=== PATIENT | female | born 1960 | race Hispanic/Latino ===

== ENCOUNTER 2016-06-05 17:31 | Emergency (ER) | payer MEDICARE, MEDICAID ==
[~2016-06-05] VITALS: Ht 162.6 cm; Wt 100.0 kg
[~2016-06-05 17:31] MED LIST: ALBU8.5H4 IH; CITA40TA13 PO; CYCL5TAB PO; DILT120C86 PO; DOXY150C PO; Docusate Sodium PO; IBUP800T28 PO; LIDO700A6 TP; METR500T PO; ONDA4VIA27 PO; OXYC5TAB72 PO
[2016-06-05 17:37] VITALS: BP 130/93; PULSE 79; RESP 18; O2SAT 98
[2016-06-05 18:08] LABS: BASOPHILS % (AUTO) 0.1 % (0-3); EOSINOPHILS % (AUTO) 2.4 % (0-5); MONOCYTES % (AUTO) 7.9 % (4-12); Mean Corpuscular Hemoglobin 29.3 pg (27.0-35.0); Mean Corpuscular Volume 86.2 fL (81-100); NEUTROPHILS % (AUTO) 61.2 % (40-74); Platelet Count 253 bil/L (150-400)
[2016-06-05 18:11] VITALS: BP 126/79; PULSE 75; RESP 17; O2SAT 98
[2016-06-05 18:42] LABS: TROPONIN T < 0.010 ug/L (0.0-0.011)
[2016-06-05 18:48] LABS: Magnesium 2.1 mg/dL (1.6-2.6)
[2016-06-05 18:56] VITALS: BP 129/68; PULSE 72; RESP 20; O2SAT 95
--- NOTE | 2016-06-05 19:02 | DRSVH ---
PROCEDURE: X-RAY CHEST ONE VIEW, PORTABLE ([id number]) INDICATIONS: Chest pain TECHNIQUE: One view of the chest was acquired. COMPARISON: [facility], , CHEST 1VW (PORTABLE), 08/25/2014, 16:26. FINDINGS: Surgical changes and devices: patient monitor leads are seen over the chest. Previous anterior lower cervical spine surgery is noted by plate and screws. Lungs and pleura: No pleural effusions or pneumothorax. Lungs are clear. Mediastinum: Mediastinal contours appear normal. Heart size is normal. Bones and chest wall: No suspicious bony lesions. Overlying soft tissues appear unremarkable. IMPRESSION: Acute disease is not seen in the upright portable chest. Dictated by: Kimo Gauthier M.D. on 06/05/2016 at 19:00 Approved by: Kimo Gauthier M.D. on 06/05/2016 at 19:01
--- NOTE | 2016-06-05 19:25 | ED.REPORT ---
HPI-Chest Pain 40 and Over Date of Service Jun 05, 2016 ED Provider: Yfn Rodríguez MD A 55 year old female with a history of prediabetes, hypertension, depression, asthma, heartburn, and fibroid uterus is referred to the ED from Urgent Care due to chest pain, described as pressure. The pressure began at 13:00 today and lasted until 17:00. This was accompanied by arm numbness, nausea, vomiting x3, and diaphoresis. The pt is not experiencing any pain in the ED. She denies a history of high cholesterol or any personal or family history of heart disease. Per pt's daughter, the pt experienced an unexplained episode of syncope two years ago that she believes may be related to her current symptoms. Nursing Notes Stated Complaint: CHEST PRESSURE Chief Complaint: Chest Pain Nursing Notes Reviewed: Yes Allergies: Coded Allergies: No Known Allergies (Verified Allergy, Unknown, 01/17/15) Scheduled Citalopram (Citalopram) 40 Mg Tablet 40 MG PO DAILY Diltiazem ER (Diltiazem ER) 120 Mg Capsule.er 120 MG PO DAILY Doxycycline Monohydrate (Adoxa) 150 Mg Capsule 150 MG PO DAILY Famotidine (Pepcid) 20 Mg Tablet 20 MG PO BID Lidocaine (Lidoderm) 700 Mg Adh..patch 1 PATCH TP HS Metronidazole (Flagyl) 500 Mg Tablet 500 MG PO BID Scheduled PRN ([Docusate Sodium]) 100 MG CAPSULE 200 MG PO BID PRN PRN For Constipation Albuterol HFA (Albuterol HFA) 8.5 Gm Hfa.aer.ad 2 PUFF IH Q4 PRN PRN For Shortness of Breath Cyclobenzaprine (Cyclobenzaprine) 5 Mg Tablet 5 MG PO TID PRN PRN Spasm Ibuprofen (Ibuprofen) 800 Mg Tablet 800 MG PO TID PRN PRN For Pain Ondansetron PF (Ondansetron PF) 2 Mg/Ml Ml 4-8 MG PO Q4H PRN PRN For Nausea oxyCODONE (oxyCODONE) 5 Mg Tablet 5-10 MG PO Q4 PRN PRN For Moderate Pain General Time Seen by MD: 17:50 Chief Complaint Chest pain Hx Obtained From: Patient Arrived By: Walk-in Sudden in Onset?: Yes Onset Occurred: 5 - 8 hours ago Symptom Duration: 1 - 4 hours Recent Healthcare: No recent hospitalization, Recent doctor visit Similar Sx Previous: No Past Medical History Past Medical History prediabetes hypertension depression asthma heartburn fibroid uterus kidney stones constipation heartburn bronchitis Past Surgical History fused cervical disks lap hysterectomy 12/2014 Reports: Appendectomy Smoking History Never Smoker Social History Alcohol Use: Denies alcohol use Other Social History: Good social support Ambulatory Status Independent Review of Systems Constitutional: Denies: Fever Respiratory: Denies: Non-productive cough, Shortness of breath Cardiovascular: Reports: Chest pain ("pressure") GI: Reports: Nausea, Vomiting, Denies: Abdominal pain Musculoskeletal: Denies: Back pain, Neck pain Skin: Reports Diaphoresis, Denies Rash Neurologic: Reports: Numbness Complete sys rev & neg: except as marked. Physical Exam Initial Vital Signs Vital Signs (First) Date Time Temp Pulse Resp B/P Pulse Ox O2 Delivery O2 Flow Rate FiO2 06/05/16 17:37 36.4 79 18 130/93 98 Room Air Initial VS: Reviewed General/Constitutional: Awake, Alert Respiratory / Chest: Atraumatic, Breath sounds NL, Breath sounds = bilat, No respiratory distress Cardiovascular: Heart rate NL, Regular rhythm, Heart sounds NL Abdomen: Atraumatic, Soft, Non-tender, BS normoactive Neck: Atraumatic, Supple, Full range of motion Back: Atraumatic, Full range of motion Lower Extremity / Pelvis / MS: Atraumatic, Full range of motion Skin: Atraumatic, Color NL, No rash, Warm, Dry Neurologic: Oriented X3, Speech NL, No motor deficits, No sensory deficits Psychiatric: Affect NL, Mood NL Head / Eyes: Atraumatic, Normocephalic, PERRL, EOMI ENT: Atraumatic, Airway patent, Mucous membranes moist Upper Extremity / MS: Atraumatic, Full range of motion Interpretation & Diagnostics Lab Results Interpretation Result Diagram: 06/05/16 1802 06/05/16 1802 Test 06/05/16 18:02 06/05/16 18:05 06/05/16 19:51 White Blood Count 6.7th/mm3 (3.8-10.1) Red Blood Count 4.57mil/mm3 (3.90-5.20) Hemoglobin 13.4g/dL (12.0-15.6) Hematocrit 39.4% (35.0-46.0) Mean Corpuscular Volume 86.2fL (81-100) Mean Corpuscular Hemoglobin 29.3pg (27.0-35.0) Mean Corpuscular Hemoglobin Concent 34.0% (32.0-37.0) Red Cell Distribution Width 13.1% (12.3-15.4) Platelet Count 253bil/L (150-400) Neutrophils (%) (Auto) 61.2% (40-74) Lymphocytes (%) (Auto) 28.3% (14-46) Monocytes (%) (Auto) 7.9% (4-12) Eosinophils (%) (Auto) 2.4% (0-5) Basophils (%) (Auto) 0.1% (0-3) Sodium Level 140mEq/L (134-144) Potassium Level 4.1mEq/L (3.5-5.2) Chloride Level 101mEq/L (97-108) Carbon Dioxide Level 26mmol/L (18-29) Blood Urea Nitrogen 16mg/dL (6-24) Creatinine 0.65mg/dL (0.57-1.00) Estimat Glomerular Filtration Rate 135mL/min (>59) Glucose Level 92mg/dL (60-99) Calcium Level 9.7mg/dL (8.5-10.1) Magnesium Level 2.1mg/dL (1.6-2.6) Total Bilirubin 0.2mg/dL (0.0-1.2) Aspartate Amino Transf (AST/SGOT) 21U/L (0-50) Alanine Aminotransferase (ALT/SGPT) 19U/L (0-32) Alkaline Phosphatase 91U/L (25-150) Total Protein 7.9g/dL (6.4-8.4) Albumin 4.2g/dL (3.4-5.0) Hold Cruz Top Tube Received (Received) Troponin T < 0.010ug/L (0.0-0.011) ECG Interpretation ECG Interpretation: normal sinus rhythm with a rate of [address] segment changes Time: 18:06 Interpreted by: ED physician X-Ray Chest Interpretation Chest Xray Interpretation: IMPRESSION: Acute disease is not seen in the upright portable chest. Dictated by: Kimo Gauthier M.D. on 06/05/2016 at 19:00 Approved by: Kimo Gauthier M.D. on 06/05/2016 at 19:01 Interpretation / Wet Read by: Interpret - Radiologist Re-Eval/Medical Decision Source of Hx: Old records Time of Eval: 20:48 Patient Status: Condition improved Re-Evaluation/Progress Note: Pt rechecked, who is resting comfortably. She is informed of her lab results, diagnosis, and the plan for discharge. The pt understands and agrees with the plan. All questions are addressed at this time. Counseled Regarding: Diagnosis, Lab results, Need for follow-up, When/why to return to ED Discharge & Departure Primary Impression: Chest pain Chest pain type: precordial chest pain Qualified Code: R07.2 - Precordial pain Disposition: Home Discharge Condition All VS Reviewed: Yes Condition: Stable Patient Instructions: Chest Pain (ED) Additional Instructions: Emergency department evaluation today included a come examination, ECG and chest x-ray, labs no serious cause for chest pain is identified. There is concern that this is possibly esophageal reflux, therefore we recommend using Pepcid. Follow up with primary care call tomorrow for an appointment. Return to emergency department for increasing chest pain shortness of breath or other new symptoms. Referrals: [facility] (PCP) Sandy Adkins Scribe Attestation Portions of this note were transcribed by Misael Dukes I, Dr. Rodríguez personally performed the history, physical exam and medical decision-making; I reviewed and confirmed the accuracy of the information in the transcribed note. Signed by: Nubia Mccallum, 06/05/16 and 20:56. copies to: Sandy Adkins; [facility] Yfn Rodríguez MD Jun 05, 2016 19:25 MISAEL DUKES Jun 05, 2016 19:36
[2016-06-05 20:15] VITALS: BP 137/79; PULSE 73; RESP 21; O2SAT 94
[2016-06-05] MEDS ORDERED: FAMO20T PO (20:52)
[2016-06-05 20:55] VITALS: BP 138/75; PULSE 72; RESP 13; O2SAT 95
== END 2016-06-05 20:59 | disposition home or self-care (01) ==
LOC: SED 17:31
DX: R07.2 Precordial pain (principal); R20.0 Anesthesia of skin; R11.2 Nausea with vomiting, unspecified; R61 Generalized hyperhidrosis; R73.03 Prediabetes; I10 Essential (primary) hypertension; J45.909 Unspecified asthma, uncomplicated
CPT/HCPCS: 36415; 71010; 80053; 83735; 84484; 85025; 93005; 99285; A4300; G0463